=== PATIENT | female | born 1985 | race Caucasian/White ===

== ENCOUNTER → 2020-01-18 16:39 | Outpatient (BNVA) | payer BC, SELFPAY | PROVIDERS: Family Provider Family Medicine; PCP Family Medicine; Visit Provider Nurse Practitioner Family | DX: Z11.59 Encounter for screening for other viral diseases (principal); Z20.828 Contact with and (suspected) exposure to other viral communicable diseases; J06.9 Acute upper respiratory infection, unspecified | CPT/HCPCS: 87635 ==

== ENCOUNTER 2021-04-04 18:12 | Emergency (ER) | payer MEDICAID, SELFPAY ==
[2021-04-04 18:50] VITALS: BP 130/85; PULSE 81; RESP 12; TEMP 37.1; O2SAT 97; BMI 34.9
[2021-04-04] MEDS: ketorolac 60 mg/2 mL INJ IM (20:34)
--- NOTE | 2021-04-04 20:35 | ED_ITS ---
HPI - Back Pain/Injury General: Chief Complaint: Back Pain/Injury Stated Complaint: low back pain Time Seen by Provider: 04/04/21 20:19 History of Present Illness: HPI Narrative: Patient with a history of chronic low back pain. Hurt back at work couple weeks ago is continued to bother her. She also has a child cerebral palsy who is 45 pounds and dad left and she has to lift her and hurts for her to lift her to set up move around. MD elicited complaint: back pain and back injury Pertinent past history: prior back pain Onset (ago): day(s) Timing: constant Severity: mild Similar Symptoms Previously: Yes Quality: aching Location: lumbar spine and left lower back Exacerbating factors: movement, sitting upright, walking and lifting Relieving factors: immobilization Associated symptoms: Reports no associated symptoms; Deny abdominal pain, chills, fever(s), nausea or vomiting Review of Systems Const: Denies: fever(s), chills or body aches Eyes: Denies: change in vision or blurry vision ENMT: Denies: throat pain or nasal congestion Card: Denies: chest pain or dyspnea on exertion Resp: Denies: dyspnea, productive cough or non-productive cough GI: Denies: abdominal pain, nausea or vomiting Musc: Reports: back pain; Denies: extremity pain Skin/Breast: Denies: rash Neuro: Denies: headache(s) Psych: Denies: anxiety or depression Duglas/Lymph: Denies: easy bruising PFS ED PFSH: Social History (Updated 09/12/19 @ 16:28 by Marjorie Thompson LPN) Smoking and tobacco status: current every day smoker Physical Exam Const: COMMON NORMALS: no acute distress, average body habitus and patient oriented x3 HENMT: COMMON NORMALS: normocephalic HEAD & SCALP: normal to inspection and normocephalic FACE & SINUS: normal facial exam Eye: COMMON NORMALS: conjunctivae normal GENERAL EYE: appearance normal, both eyes and all related structures CONJUNCTIVA: Yes conjunctivae normal Neck/C-Spine: COMMON NORMALS: no JVD Chest: COMMONS NORMALS: normal inspection of the chest Resp: COMMON NORMALS: normal respiratory effort and clear to auscultation bilaterally AUSCULTATION: clear to auscultation bilaterally Cardio: COMMON NORMALS: no JVD, regular rate and regular rhythm RATE: regular rate RHYTHM: regular rhythm GI: COMMON NORMALS: Normal to inspection, nondistended, normoactive bowel sounds present Back/Pelvis: LUMBAR SPINE/LOWER BACK: Yes normal to inspection, Yes paraspinal muscle tenderness and Yes straight leg raise positive left Extremity: COMMON NORMALS: normal to inspection and full ROM Neuro: COMMON NORMALS: patient oriented x3 Course Vital Signs: Vital signs: Vital Signs Temperature 98.7 F 04/04/21 18:50 Pulse Rate 81 04/04/21 18:50 Respiratory Rate 12 04/04/21 18:50 Blood Pressure 130/85 04/04/21 18:50 Pulse Oximetry 97 04/04/21 18:50 Discharge Plan Discharge Patient Disposition: Home Clinical Impression: Lumbar radiculopathy Condition: Stable Prescriptions: New prednisone 20 mg tablet 20 mg PO DAILY Qty: 7 RF: 0 cyclobenzaprine 5 mg tablet 5 mg PO TID PRN (Reason: muscle spasm) Qty: 10 RF: 0 No Action sertraline 100 mg tablet 150 mg PO DAILY RF: 0 Discharge Orders: Discharge ED (Routine); Ordered 04/04/21 Ordered By: James Leo Referrals: Angela Torres DO [Primary Care Provider] - Discharge Diet: Usual diet Discharge Activity: Limit activity as instructed Patient Instructions: Low Back Strain (ED), Lower Back Exercises (ED) Activity Restrictions/Additional Instructions: Follow-up with medical provider as directed. Take medications as prescribed. Return to the ER or your medical provider if condition worsens. Please read and understand discharge instructions. If any questions ask please. Stand Alone Forms: Work/School Release Coding Level of Care Code ED Sales Donor Recruitment Representative for Barron Argueta
[2021-04-04] MEDS: orphenadrine 30 mg/mL Inj 2 mL 60 MG IM (20:39)
[2021-04-04] MEDS: TRAMadol 50 mg Tablet PO (20:44)
[2021-04-04 21:02] VITALS: RESP 20
== END 2021-04-04 21:03 | disposition home or self-care (01) ==
PROVIDERS: Emergency Provider Nurse Practitioner Family; PCP Family Medicine
DX: M54.16 Radiculopathy, lumbar region (principal); F17.210 Nicotine dependence, cigarettes, uncomplicated
CPT/HCPCS: 96372; 99283; J1885; J2360

== ENCOUNTER → 2021-08-12 13:59 | Outpatient (BNVA) | payer MEDICAID, SELFPAY | PROVIDERS: PCP Physician Assistant; Visit Provider Surgery | DX: K43.2 Incisional hernia without obstruction or gangrene (principal); F17.210 Nicotine dependence, cigarettes, uncomplicated | CPT/HCPCS: 99204 ==

== ENCOUNTER 2021-09-17 07:37 | Outpatient (CLI) | payer MEDICAID, SELFPAY ==
--- NOTE | 2021-09-17 09:00 | CT_ITS ---
WS: [id number] CT ABDOMEN AND PELVIS NONCONTRAST HISTORY: incisional hernia TECHNIQUE: Imaging performed through the abdomen and pelvis. Coronal and sagittal reformats are submi tted. All CT scans at [facility] use at least one of these dose optimization techniques: auto mated exposure control; mA and/or kV adjustment per patient size (includes targeted exams where dose is matched to clinical indication); or iterative reconstruction. DLP: 1277.15 mGy.cm COMPARISON: 09/01/2017 Lower thorax: Motion artifact at the lung bases. Heart size is normal. No hiatal hernia. Liver: Normal size liver. No mass or bile duct dilatation. Gallbladder: Normal gallbladder. Pancreas: Normal size and attenuation. Normal pancreatic duct. No pancreatitis or mass. Spleen: Normal. Adrenal glands: Normal. No mass. Right kidney: Normal size kidney with no mass or hydronephrosis. Nonobstructing 2 mm stone lower pole . Left kidney: Normal size kidney with no mass or hydronephrosis. Aorta: Normal abdominal aorta, no aneurysm or atherosclerosis. No free fluid, intraperitoneal air or significant lymphadenopathy. GI tract: No GI tract obstruction. The appendix not definitely visualized. There is a very large RIGH T lateral infraumbilical abdominal wall hernia. Moderate amount of small bowel and also is a small am ount of the RIGHT colon is extending into the hernia sac. The orifice of the hernia transversely is 6 .8 cm and the hernia opening extends over a length of 9.7 cm. There is no obstruction of the colon or small bowel. This hernia has increased in size since 2018. Abdominal wall: Large RIGHT lateral infraumbilical abdominal wall hernia as described above. This her morgan contains small bowel and colon. There is an additional fat-containing umbilical hernia. Pelvis: Uterus and both ovaries are identified. Minimally complex cyst associated with the LEFT ovary measures 2.0 cm. No free fluid in the pelvis. No adenopathy. Osseous structures: Mild LEFT curvature lumbar spine. CT/CT abdomen pelvis wo con [id number] IMPRESSION: 1. Progressive enlargement of a very large infraumbilical, RIGHT lateral ventr al abdominal wall hernia containing nonobstructed small bowel and colon. Hernia has increased in size since 09/01/2017. 2. Abdominal wall hernia orifice transversely measures 6.8 cm and extends over a length of 9.7 cm. 3. Additional fat-containing umbilical hernia. 4. No ascites or adenopathy.
== END 2021-09-17 07:38 | disposition home or self-care (01) ==
LOC: RAD 07:39
PROVIDERS: PCP Physician Assistant; Visit Provider Surgery
DX: K43.2 Incisional hernia without obstruction or gangrene (principal)
CPT/HCPCS: 74176

== ENCOUNTER → 2021-09-23 10:06 | Outpatient (BNVA) | payer MEDICAID, SELFPAY | PROVIDERS: PCP Physician Assistant; Visit Provider Surgery | DX: K43.2 Incisional hernia without obstruction or gangrene (principal); Z71.6 Tobacco abuse counseling | CPT/HCPCS: 99214 ==

== ENCOUNTER 2021-10-07 16:28 | Observation (INO) | payer MEDICAID, SELFPAY ==
[2021-10-03 12:46] VITALS: BMI 33.4
[2021-10-07] VITALS (32 sets, daily range): BP systolic 112–168; BP diastolic 73–108; PULSE 44–87; RESP 11–19; TEMP 36.2–37.1; O2SAT 92–100; BMI 33.8
[2021-10-07] MEDS: sodium chloride 0.9% 1,000 ML 30 ML IV (09:32)
[2021-10-07 09:36] LABS: OR HCG Qualitative Urine Negative (Negative)
--- NOTE | 2021-10-07 09:41 | ANES.PREANE2 ---
Pre-Anesthetic Assessment Height/Weight: Height 1.73 m Weight 99.79 kg Temp Pulse Resp BP Pulse Ox 97.2 F L 69 18 112/82 98 10/07/21 09:18 10/07/21 09:18 10/07/21 09:18 10/07/21 09:18 10/07/21 09:18 Preop Diagnosis: incisional hernia Operation Date: 10/07/21 10:20 Proposed Procedures p open incisional hernia w mesh poss component separation [id number],K43.2(Not Applicable) - Alex Null MD Familial anesthetic complications: None Was Beta Noah taken within 24 hours: N/A Was Clonidine taken within 24 hours: N/A Last intake: Intake Last Liquid Date 10/06/21 Last Liquid Time 23:30 Last Solid Date 10/06/21 Last Solid Time 21:30 Social No alcohol and No tobacco Exam alert, oriented x 3, clear to auscultation bilaterally and regular rate & rhythm Airway Mallampati: Class II Dentition: full Pulmonary None reported CV/HEM None reported None reported Hepatic None reported GI None reported Metabolic None reported Musc/skel None reported Neuropsych None reported Anesthetic Plan ASA status: 3 Anesthesia: General Risk of > 500 ml blood loss (7ml/kg in children): No Medications/Allergies Home Medications Medication Instructions Recorded Confirmed Last Taken Type levonorgestrel-ethinyl estradiol 1 tab PO DAILY #28 tab 09/24/21 10/07/21 Unknown Rx 0.1 mg-20 mcg tablet (Aviane) lwrgkcoidadk-Fo-ymzu-minerals 18 1 tab PO DAILY 09/24/21 10/07/21 10/06/21 History mg-0.4 mg tablet Allergies Allergy/AdvReac Type Severity Reaction Status Date / Time No Known Allergies Allergy Verified 10/07/21 09:13 Current Medications Generic Name Dose Route Start Last Admin Trade Name Freq PRN Reason Stop Dose Admin Sodium Chloride 1,000 mls @ 30 mls/hr 10/07/21 09:15 10/07/21 09:32 Sodium Chloride 0.9% IV 10/08/21 09:14 30 mls/hr .Q24H OLIVIER Administration PFSH Anesthesia Medical History Hernia Incisional hernia No pertinent past medical history neghx: htn, dm, thyroid, dvt/pe PCP: Ada Cruz Ovarian cyst Surgical History History of section History of D&C History of tubal ligation 07/01/2017 Family History (Updated 09/24/21 @ 13:27 by Jessica Morris LPN) Mother Hypertension Father Hypertension Denies family history of Cervical cancer Colon cancer Ovarian cancer Prostate cancer Diabetes Heart disease Hyperlipidemia Breast cancer Bleeding disorder Uterine cancer Thyroid disease Stroke Female Reproductive History Date of last menstrual period: 09/09/21 Data Anesthesia Cardiac Studies: No Data to Display
--- NOTE | 2021-10-07 09:52 | P.HP_ITS ---
Same Day Surgery H&P Indication for Procedure/HPI DATE OF PROCEDURE: October 07, 2021 CHIEF COMPLAINT/INDICATIONFOR SURGICAL PROCEDURE: incisional hernia repair PREOP DIAGNOSIS: incisional hernia PLANNED PROCEDURE: Operation Date: 10/07/21 10:20 Proposed Procedures p open incisional hernia w mesh poss component separation [id number],K43.2(Not Applicable) - Alex Null MD Medications/Allergies* Home Medications Medication Instructions Recorded Confirmed Type hjfqtrthoejm-Da-dejl-minerals 18 1 tab PO DAILY 09/24/21 10/07/21 History mg-0.4 mg tablet Allergies/Adverse Reactions Allergy/AdvReac Type Severity Reaction Status Date / Time No Known Allergies Allergy Verified 10/07/21 09:13 Current Medications: Generic Name Dose Route Start Last Admin Trade Name Freq PRN Reason Stop Dose Admin Sodium Chloride 1,000 mls @ 30 mls/hr 10/07/21 09:15 10/07/21 09:32 Sodium Chloride 0.9% IV 10/08/21 09:14 30 mls/hr .Q24H OLIVIER Administration Pertinent History/Comorbid Conditions* Medical History (Updated 09/25/21 @ 12:10 by Jeanine Ponce MD) Hernia Incisional hernia No pertinent past medical history neghx: htn, dm, thyroid, dvt/pe PCP: Ada Cruz Ovarian cyst Surgical History (Updated 09/25/21 @ 12:09 by Jeanine Ponce MD) History of section History of D&C History of tubal ligation 07/01/2017 Family History (Updated 09/24/21 @ 13:27 by Jessica Morris LPN) Hypertension Mother Father Denies family history of Cervical cancer Colon cancer Ovarian cancer Prostate cancer Diabetes Heart disease Hyperlipidemia Breast cancer Bleeding disorder Uterine cancer Thyroid disease Stroke Pertinent Exam Findings alert and regular rate & rhythm Recommendations Surgery/Procedure today Coding Level of Care Code Acute Oyster Cultivator for Barron Argueta
--- NOTE | 2021-10-07 14:01 | PM.OP ---
Operative Report Date of procedure: October 07, 2021 Pre-op diagnosis: Infraumbilical incarcerated incisional hernia measuring 10 x 7 cm containing small bowel and sigmoid colon with midline Post-op diagnosis: Infraumbilical incarcerated incisional hernia measuring 10 x 7 cm containing small bowel and sigmoid colon to the right of the midline Procedure done: 1. Open repair of incarcerated incisional hernia with mesh 2. Implantation of 20 x [address] mesh in the retrorectus space 3. Anterior component release of external oblique aponeurosis and posterior rectus sheath on the right side Specimens removed/disposition: hernia sac and overlying skin Surgeon: Alex Null Anesthesia: General Condition: stable Disposition: PACU Procedure: The patient was taken to the operating room and intubated under general anesthesia after IV antibiotic had been administered. The abdomen was prepped and draped in a sterile manner. Using a 15 blade a midline laparotomy incision was made from the umbilicus to the suprapubic area. The subcutaneous tissue was divided using electrocautery until the hernia sac was identified. The peritoneal cavity was entered superior to the hernia sac just inferior to the umbilicus and the fascia was divided in the midline from the umbilicus to the suprapubic area. There were adhesions of the small bowel and the sigmoid colon to the hernia sac which was taken down using Metzenbaum scissors and electrocautery. After the small bowel and the colon was reduced into the peritoneal cavity the hernia sac was excised using electrocautery from the surrounding subcutaneous tissue up to the anterior rectus sheath on the right side. The left rectus muscle was in the midline and the defect measured 10 x 7 cm with the right rectus muscle retracted laterally. Incision was made in the posterior rectus sheath 2 cm from the midline using electrocautery and the retrorectus space was entered and dissection was carried superiorly above the umbilicus bilaterally. The dissection was carried inferiorly into the space of Retzius. The linea semilunaris on the right side was identified after excision of the hernia sac and therefore further significant subcutaneous flaps did not have to be raised. About 2 cm lateral to the right linea semilunaris the external oblique aponeurosis was excised using cautery from the inguinal ligament up to the costal margin and the external oblique aponeurosis was bluntly laterally resulting in mobilization of the right rectus muscle to the midline. The posterior rectus sheath was approximated in the midline using running 0 Vicryl suture. There were areas where the posterior rectus sheath was extremely thinned out. Though I was able to close the posterior rectus sheath completely I was concerned about a few areas and therefore I chose to place Ventralight 20 x 15 cm mesh in the retrorectus space and secured it with Securestraps. The fascia in the midline was closed using running #1 looped PDS suture. A stab incision was made in the right lower quadrant and a 10 flat ROMI drain was placed under the subcutaneous flap. Patient had a large amount of excess skin from the large hernia and this was excised using a 10 blade. The subcutaneous tissues were approximated using interrupted 3-0 Vicryl suture and skin was closed using combination of absorbable roe and regular roe due to difficulty with managing the excess skin and ensuring adequate closure. The drain was attached to bulb suction and sutured with 2-0 Prolene suture. The patient was extubated and transferred to recovery room in stable condition.
[2021-10-07] MEDS: glycopyrrolate 0.2 mg/mL SDV 2 mL 0.4 MG IV (14:31)
--- NOTE | 2021-10-07 14:38 | ANE.PACU2 ---
Inpatient post-anesthesia follow up: Airway intact: Yes Vital signs: Temperature 98.3 F Pulse Rate 48 Respiratory Rate 12 Blood Pressure 142/91 Pulse Oximetry 98 Oxygen Delivery Me thod Simple Mask Oxygen Flow Rate 8 Fraction of Inspir ed Oxygen Hydration adequate: Yes Nausea and vomiting: No Pain level: 5 Mental status: Baseline
[2021-10-07] MEDS: fentaNYL 50 mcg/mL INJ 2mL IVP (14:43)
[2021-10-07] MEDS: HYDROmorphone 1 mg/mL INJ 1 mL 0.5 MG IVP (14:54)
--- NOTE | 2021-10-07 16:05 | PC.NURSE ---
[id number] Dr. Parra notified of continued pain and bradycardia. \order received
--- NOTE | 2021-10-07 16:06 | PC.NURSE ---
1408 Patient bradycardic and deep sleeping. Placed on simple mask for O2 administration
--- NOTE | 2021-10-07 16:08 | PC.NURSE ---
1416 Awake and alert. Returned to room air
[2021-10-07] MEDS: oxyCODONE-APAP 5-325 mg Tablet 1 TAB PO (16:54)
[2021-10-07] MEDS: D5-NS 0.45% + KCL 20 mEq 20 MEQ/1,000 ML BAG 100 MEQ IV (16:59)
[2021-10-07] MEDS: cyclobenzaprine 10 mg Tablet PO (18:38)
[2021-10-07] MEDS: sennosides-docusate Tablet 1 TAB PO (18:38)
[2021-10-07] MEDS: morphine 4 mg/mL SDV 1 mL 3 MG IVP ×3 (18:47→21:56)
--- NOTE | 2021-10-07 23:26 | PC.NURSE ---
patient resting in bed c/o some break through pain medicated as ordered. patient is able to ambulate to restroom with only stand by assist, tolerated well
--- NOTE | 2021-10-07 23:30 | PC.NURSE ---
patient resting in bed struggled to get up to the bed side commode has opted to use the bed thompson. educated patient the importance of ambulation and movement for recovery. medicated as ordered for pain. Edwin drain intact and draining 60ml output thus far this shift
[2021-10-08] VITALS (12 sets, daily range): BP systolic 132–134; BP diastolic 77–87; PULSE 50–77; RESP 16–20; TEMP 36.2–36.8; O2SAT 95–100
[2021-10-08] MEDS: morphine 4 mg/mL SDV 1 mL 3 MG IVP ×5 (00:15→15:19)
[2021-10-08] MEDS: oxyCODONE-APAP 5-325 mg Tablet 1 TAB PO ×3 (00:16→13:32)
[2021-10-08] MEDS: D5-NS 0.45% + KCL 20 mEq 20 MEQ/1,000 ML BAG 100 MEQ IV (03:45)
--- NOTE | 2021-10-08 07:41 | PC.NURSE ---
Patient expressed complaint of pain during shift report. Patient given Oxycodone. Patient would like to advance her diet, educated patient to discuss how well she is tolerating clear liquids with the physician to determine if she is appropriate to advance. Patient denies any other concerns or needs at this time.
[2021-10-08] MEDS: sennosides-docusate Tablet 1 TAB PO (08:33)
--- NOTE | 2021-10-08 08:35 | PC.NURSE ---
Discussed with patient the importance of maintaining a regular pain medication schedule this soon after surgery to prevent breakthrough pain. Educated patient on importance of stool softeners with pain medication and abdominal surgery combination after discharge as well.
--- NOTE | 2021-10-08 11:05 | PC.NURSE ---
Advised patient that Dr Null would like patient to wait one more day to shower. Patient's is helping patient with a bed bath per patient request.
--- NOTE | 2021-10-08 20:10 | PC.NURSE ---
[id number] Patient educated on discharge instructions. Patient advised to slowly advance diet as tolerated, avoid strenuous activity with weight restrictions, not to drive while taking narcotics, educated patient on alternating pain medication with non-opiods to slowl wean off the oxycodone, constipation prevention, wound care, and symptoms that would lead to returning to ED. Patient and spouse were educated and demonstrated emptying of ROMI drain and patient was advised to keep a log of output totals when she follows up with Dr Null in his office.
--- NOTE | 2021-10-10 07:19 | PM.DCS ---
Discharge Providers Date of Admission: 10/07/21 16:28 Date of Discharge: October 10, 2021 Attending Provider at Admission: Alex Null MD Attending Provider at Discharge: Alex Null MD Primary Care Provider: Ada Cruz Reason for Visit Reason for Visit: Brief History: This is a 36-year-old female who developed a large incisional hernia measuring 10 x 7 cm after prior . Patient wanted to undergo repair of the incarcerated symptomatic incisional hernia Hospital Course Hospital Course The patient underwent open incisional hernia repair with mesh and right anterior component separation. She was kept overnight for observation and pain control. The following day the patient was tolerating a regular diet, ambulating, her vital signs are stable and her dressings are dry and intact. Her ROMI drain output was serosanguineous. Physical Exam Narrative: Abdomen: Soft, tender, nondistended, dressings slightly saturated, ROMI drain output is serosanguineous Discharge Data Studies Completed and Pending Pending at discharge Category Date Time Status Pathology: Surgical [PTH] Routine Pth 10/07/21 13:58 Received Laboratory Results Urine HCG, Qual Negative (Negative) 10/07/21 09:09 Vitals Last Vital Signs Temp 97.6 F 10/08/21 11:40 Pulse 71 10/08/21 11:40 Resp 20 H 10/08/21 20:08 BP 134/87 10/08/21 11:40 Pulse Ox 97 10/08/21 20:08 Discharge Plan Discharge Patient Disposition: Home Condition: Stable Prescriptions: New ondansetron HCl 4 mg tablet 4 mg PO Q8H 5 Days Qty: 15 0RF Senna with Docusate Sodium 8.6-50 mg tablet 1 tab-cap PO BID Qty: 30 0RF Percocet 5-325 mg tablet 1 tab PO Q6H PRN (Reason: pain) Qty: 20 0RF Continued johswkoixrot-Qz-jqhl-minerals 18-0.4 mg tablet 1 tab PO DAILY 0RF levonorgestrel-ethinyl estrad [Aviane] 0.1-20 mg-mcg tablet 1 tab PO DAILY Qty: 28 12RF Discharge Orders: Discharge Order (Routine); Ordered 10/08/21 Ordered By: Alex Null Referrals: Alex Null MD [Physician] - 10/21/21 (PLEASE CALL WITH APPOINTMENT) Patient Instructions: Oxycodone/Acetaminophen (By mouth) (Percocet, Roxicet), Ondansetron (By mouth), Senna (By mouth), Incisional Hernia (GEN), Opioid Safety Activity Restrictions/Additional Instructions: Diet Advance to normal diet as tolerated, increase fluid intake as much as possible. Activity Avoid strenuous activity for 2 weeks but continue with daily activities including walking as tolerated. Do not lift more than 10 pounds for 2 weeks Return to work/school You can return to work/ school whenever you feel ready as long as you don?t have to lift more than 10 pounds at work. If you have paperwork that needs to be completed for time off from work, please contact my office Driving You can resume driving once you stop using narcotic pain medications, and transition to non-opioid pain medications like Tylenol, Motrin, Aleve, etc. Medications Pain Take opioid pain medications as prescribed and transition to non-opioid pain medications like Tylenol, Motrin, Aleve etc. over the next few days. The goal of the pain medications is to make the pain bearable and not to be pain free since you recently had surgery. Resume all home medications after surgery as per the medication reconciliation list Nausea Nausea is common after surgery, take nausea medications as needed and stay on a liquid bland diet until nausea resolves. Constipation The combination of surgery, anesthesia and pain medications can result in constipation. Take stool softeners as prescribed. If you do not have a bowel movement in 3 days, please take an cysp-ned-havxnsb laxative like MiraLAX to address the constipation. Shower It is ok to shower but avoid getting the wound wet for 48 hours after surgery. Do not soak in bathtub, swimming pool or hot tub for 2 weeks. Wound care If glue has been used on your incisions after surgery, the glue on the incision will peel slowly over the next two weeks. The stitches used are dissolvable and will not need to be removed. Do not apply antibiotics or other medications on the incision Problems with the wound: you can develop some redness around the incision from bruising after surgery. If there is increasing pain, redness, tenderness around the incision with or without drainage, please contact my office to rule out an infection. Sometimes the skin at the incisions can separate, resulting in reopening of the wound. Cover the wound with antibiotic cream and sterile dressings and contact my office. Contact physician Call the office at [phone] during office hours or go the Emergency Room ?Fever to 100.4 or greater ?Shaking chills ?Pain that increases over time ?Redness, warmth, or pus draining from incision sites ?Persistent nausea or inability to take in liquids Discharge Attestations Time Spent in Discharge Care*: less than 30 min Quality Metrics Clinical Quality Measures [ No reported AMI, CVA or VTE this stay] Coding Level of Care Code Acute Chg FW DC note
== END 2021-10-08 15:35 | disposition home or self-care (01) ==
PROVIDERS: Anesthesiology; Admitting Provider Surgery; PCP Physician Assistant; Visit Provider Surgery
PROC: (CPT 49587; principal; 2021-10-07 10:20)
DX: K43.0 Incisional hernia with obstruction, without gangrene (principal); K66.0 Peritoneal adhesions (postprocedural) (postinfection)
CPT/HCPCS: 49587; 84703; 88302; 88305; 94664; C1718; C9290; G0378; J0690; J1100; J1170; J2270; J2405; J2704; J2710; J3010; J3490; J7030

== ENCOUNTER → 2021-10-21 11:34 | Outpatient (BNVA) | payer MEDICAID, SELFPAY | PROVIDERS: PCP Physician Assistant; Visit Provider Surgery | DX: Z98.890 Other specified postprocedural states (principal) | CPT/HCPCS: 99024 ==

== ENCOUNTER → 2021-12-10 14:50 | Outpatient (BNVA) | payer MEDICAID, SELFPAY | PROVIDERS: Visit Provider Emergency Medicine | DX: J02.9 Acute pharyngitis, unspecified (principal) | CPT/HCPCS: 87071; 87880 ==

== ENCOUNTER → 2022-12-18 13:57 | Outpatient (BNVA) | payer MEDICAID, SELFPAY | PROVIDERS: PCP Nurse Practitioner Family; Visit Provider Nurse Practitioner Family | DX: E66.9 Obesity, unspecified (principal); E28.2 Polycystic ovarian syndrome | CPT/HCPCS: 80053 ==

== ENCOUNTER → 2023-01-28 15:52 | Outpatient (BNVA) | payer MEDICAID, SELFPAY | PROVIDERS: PCP Nurse Practitioner Family; Visit Provider Emergency Medicine | DX: J06.9 Acute upper respiratory infection, unspecified (principal) | CPT/HCPCS: 87400; 87426 ==

== ENCOUNTER 2023-03-25 11:02 | Outpatient (CLI) | payer OTHER, MEDICAID, SELFPAY ==
[2023-03-25 11:30] LABS: Basophils % 0.6 %; Eosinophils # 0.2 10^3/uL (0.0-0.8); Eosinophils % 3.1 %; Hematocrit 39.1 % (36-47); Lymphocytes # 1.7 10^3/uL (0.8-4.8); Mean Corpuscular Hemoglobin 27.6 pg (27-33); Mean Corpuscular Volume 83.5 fl (85-98); Mean Platelet Volume 9.1 fL (7.4-10.4); Monocytes # 0.3 10^3/uL (0.2-0.9); Neutrophils # 3.99 10^3/uL (1.8-7.7); Neutrophils % 64.1 %; Nucleated Red Blood Cells % 0 %; Platelet Count 360 10^3/cmm (157-399); Red Blood Count 4.68 10^6/uL (3.85-5.65); Red Cell Distribution Width 12.3 % (12.1-15.1); White Blood Count 6.22 10^3/uL (3.29-11.43)
[2023-03-25 12:01] LABS: Thyroid Stimulating Hormone 0.87 uIU/mL (0.27-4.20)
[2023-03-25 13:29] LABS: Folate Level 14.8 ng/mL (4.8-37.3)
[2023-03-25 14:12] LABS: Iron 74 ug/dL (37-145); Percent Saturation 25.2 % (20-50); Total Iron Binding Capacity 293 mcg/dl; Unsaturated Iron Binding 219 ug/dL (112-347)
[2023-03-25 14:21] LABS: Vitamin B12 645 pg/mL (232-1245)
[2023-03-28 13:20] LABS: Vit D 1,25 (Oh)2, Total 28 pg/mL (18-72); Vit D2 1,25 (Oh)2 <8 pg/mL; Vit D3 1,25 (Oh)2 28 pg/mL
[2023-03-31 20:09] LABS: Zinc Level, Serum or Plasma 63 mcg/dL (60-130)
[2023-04-02 14:47] LABS: Albumin 4.2; Sex Hormone Binding Globulin 28.5; Testosterone Bioavailable 8.2; Testosterone Free 4.2; Testosterone Total Males IA 32
== END 2023-03-25 11:03 | disposition home or self-care (01) ==
LOC: LAB 11:04
PROVIDERS: PCP Nurse Practitioner Family; Visit Provider Nurse Practitioner Family
DX: L65.9 Nonscarring hair loss, unspecified (principal); N92.6 Irregular menstruation, unspecified
CPT/HCPCS: 36415; 82040; 82607; 82652; 82746; 83540; 83550; 84270; 84403; 84439; 84443; 84630; 85025

== ENCOUNTER → 2023-06-06 12:18 | Outpatient (BNVA) | payer OTHER, MEDICAID, SELFPAY | PROVIDERS: PCP Nurse Practitioner Family; Visit Provider Registered Nurse Neonatal Intensive Care | DX: Z20.828 Contact with and (suspected) exposure to other viral communicable diseases (principal) | CPT/HCPCS: 87400 ==

== ENCOUNTER 2023-09-22 20:00 | Outpatient (CLI) | payer MEDICAID, SELFPAY | END 2023-09-22 20:01 | disposition home or self-care (01) | LOC: SLEEP 09-23 06:26 | PROVIDERS: PCP Nurse Practitioner Family; Visit Provider Nurse Practitioner Family | DX: G47.33 Obstructive sleep apnea (adult) (pediatric) (principal) | CPT/HCPCS: 95810 ==